=== PATIENT | male | born 1960 | race Caucasian/White ===

== ENCOUNTER 2018-09-13 23:19 | Inpatient (IN) | payer MEDICARE, OTHER ==
[~2018-09-13] VITALS: Ht 177.8 cm; Wt 84.1 kg
[2018-09-14] MEDS ORDERED: DIPHTH/TET/ACEL PERTUSS (ADULT) 0.5 ML VIAL IM* ONE (01:30)
[2018-09-14] MEDS ORDERED: SOD CHLORIDE 0.9% 1,000 ML IV STA (01:30)
--- NOTE | 2018-09-14 01:47 | ERD ---
ER Documentation Chief Complaint Chief Complaint bib ra from home for fall, face first, deformed nose, HPI This is a 58-year-old male who presents for evaluation of fall. Patient was brought in by EMS intoxicated with alcohol. The majority of the history was given by the patient's spouse. She states that the patient has a history of renal failure, his baseline creatinine is around 4, he is not currently on dialysis, she states that he has been drinking a little bit, and been confused, then he had a significant fall, and suffered a facial injury. Patient presented intoxicated, she also states that the patient has a prior history of a stroke. ROS All systems reviewed and are negative except as per history of present illness. Allergies Allergies: Coded Allergies: Unknown: Unable to obtain (Unverified , 09/14/18) PMhx/Soc Medical and Surgical Hx: pt denies Surgical Hx History of Surgery: No Hx Neurological Disorder: Yes (CVA) Hx Cardiac Disorders: Yes (htn, hyperlipidemia ) Hx Alcohol Use: Yes Smoking Status: Unknown if ever smoked Physical Exam Vitals Vital Signs Date Temp Pulse Resp B/P (MAP) Pulse Ox O2 O2 Flow FiO2 Time Delivery Rate 09/13/18 98.2 58 19 141/91 100 Room Air 23:26 (108) 09/13/18 98.2 53 19 126/65 100 23:21 (85) Physical Exam Const: Patient somnolent but arousable, Head: Atraumatic Eyes: Normal Conjunctiva ENT: Normal External Ears. There is ecchymosis and swelling of the nose noted, there is a 1 cm superficial laceration noted at the proximal nasal bridge. There is no septal hematoma, midface is stable Neck: Full range of motion. No C-spine tenderness no meningismus. Resp: Clear to auscultation bilaterally Cardio: Regular rate and rhythm, no murmurs Abd: Soft, non tender, non distended. Normal bowel sounds Skin: No petechiae or rashes Back: No midline or flank tenderness Ext: No cyanosis, or edema Neur: Awake and alert Psych: Normal Mood and Affect Result Diagram: 09/13/18 2343 09/13/18 2343 Results 24 hrs Laboratory Tests Test 09/13/18 00:30 09/13/18 23:43 09/14/18 01:20 09/14/18 01:56 Urine Opiates Negative Screen Urine Negative Barbiturates Urine Negative Amphetamines Screen Urine Negative Benzodiazepines Screen Urine Cocaine Negative Screen Urine Positive Cannabinoids White Blood Count 8.2 10^3/ul Red Blood Count 3.94 10^6/ul Hemoglobin 10.9 g/dl Hematocrit 33.6 % Mean Corpuscular 85.3 fl Volume Mean Corpuscular 27.7 pg Hemoglobin Mean Corpuscular 32.4 g/dl Hemoglobin Concen t Red Cell 14.5 % Distribution Width Platelet Count 234 10^3/UL Mean Platelet 9.6 fl Volume Immature 1.200 % Granulocytes % Neutrophils % 61.7 % Lymphocytes % 24.5 % Monocytes % 9.3 % Eosinophils % 2.8 % Basophils % 0.5 % Nucleated Red 0.0 /100WBC Blood Cells % Immature 0.100 10^3/ul Granulocytes # Neutrophils # 5.1 10^3/ul Lymphocytes # 2.0 10^3/ul Monocytes # 0.8 10^3/ul Eosinophils # 0.2 10^3/ul Basophils # 0.0 10^3/ul Nucleated Red 0.0 10^3/ul Blood Cells # Prothrombin Time 11.5 Sec Prothrombin Time 0.9 Ratio INR International 0.83 Normalized Ratio Activated 25.5 Sec Partial Thrombopl ast Time Sodium Level 143 mmol/L Potassium Level 4.8 mmol/L Chloride Level 111 mmol/L Carbon Dioxide 14 mmol/L Level Anion Gap 18 Blood Urea 58 mg/dl Nitrogen Creatinine 5.15 mg/dl Est Glomerular 12 mL/min Filtrat Rate mL/min Glucose Level 111 mg/dl Calcium Level 8.1 mg/dl Total Bilirubin 0.2 mg/dl Direct Bilirubin 0.00 mg/dl Indirect 0.2 mg/dl Bilirubin Aspartate Amino 22 IU/L Transf (AST/SGOT) Alanine 15 IU/L Aminotransferase (ALT/SGPT) Alkaline 79 IU/L Phosphatase Troponin I < 0.012 ng/ml Total Protein 7.3 g/dl Albumin 4.3 g/dl Globulin 3.00 g/dl Albumin/Globulin 1.43 Ratio Lipase 170 U/L Ethyl Alcohol 155.0 mg/dl Level Blood Gas Blood venous Specimen Source Arterial Blood 09/14/2018 2:00:34 Date Drawn AM Arterial Blood VENOUS LINE Gas Puncture Site Damian Test N/A Mixed Venous 7.275 Blood pH Mixed Venous 42.4 mmHG Blood PCO2 Mixed Venous 48.6 mmHG Blood PO2 Mixed Venous 19.3 mmol/L Blood HCO3 Mixed Venous -7.2 mmol/L Blood Base Excess Mixed Venous 80.3 mmHG Blood O2 Saturation Mixed Venous 12.2 g/dl Blood Total Hemoglobin Mixed Venous 80.0 % Blood Oxyhemoglob in Mixed Venous 0.3 % Bld Carboxyhemogl obin Mixed Venous 0.1 % Blood Methemoglob in Blood Gas 37.0 C Temperature Blood Gas ROOM AIR Modality FiO2 21.0 % Blood Gas AA Notified Whom Blood Gas 09/14/2018 2:06:12 Notified Time AM POC Venous 1.3 mmol/L Lactate Current Medications Medications Dose Sig/Martine Start Time Status Last (Trade) Ordered Route PRN Stop Time Admin Dose Reason Admin Diphtheria/ 0.5 ml ONCE ONCE 09/14/18 DC Tetanus/Acell IM* 01:30 09/14/18 Pertussis 01:31 (Adacel) Sodium 1,000 ml @ Q1H STAT 09/14/18 Chloride 1,000 mls/hr IV 01:30 09/14/18 02:29 Procedures/MDM This is a 58-year-old male who presents for evaluation of a fall. #Fall: Unclear if syncopal or mechanical, given patient's intoxication with EtOH. His cardiac work-up was unremarkable, with EKG showing no evidence of ischemia or arrhythmia. Troponin was also negative. He had clear evidence of facial trauma, with what clinically appeared to be a fractured nose. He had no septal hematomas, no evidence of airway compromise, superficial laceration was noted. Patient tetanus updated, Laceration Repair by me: Anesthesia: None Location: Nasal bridge Tendon/Joint/Nerves: No injury Foreign body: None detected after copious irrigation and exploration Technique: Skin adhesive Complexity: No subcutaneous sutures/mucosal repair/edge excision Post Closure Length: 1 cm cm Patient's bleeding was easily controlled in the department and there is no mag cation of anemia. No evidence of compartment syndrome, neurologic injury, vascular injury, open joint, tendon laceration, or foreign body. Patient is appropriate for outpatient follow up. 48 hour wound check. Scar minimization instructions given. #Renal failure. Patient's creatinine was noted to be significantly elevated, he also had an anion gap metabolic acidosis. He is not currently on dialysis, patient was given IV fluids, and he will need further work-up for this. EKG: Rate/Rhythm: Normal Sinus Rhythm QRS, ST, T-waves: No changes consistent w/ acute ischemia Impression: No evidence of ischemia or arrhythmia Accepting Care Team: Current data and ongoing care discussed. Primary: Oge Consulting: None Outstanding Data: none Departure Diagnosis: Primary Impression: Fall Encounter type: initial encounter Qualified Codes: W19.XXXA - Unspecified fall, initial encounter Additional Impression: Nasal fracture Encounter type: initial encounter Fracture type: closed Qualified Codes: S02.2XXA - Fracture of nasal bones, initial encounter for closed fracture Condition: Serious CORDEROALEX MD Sep 14, 2018 01:46
[2018-09-14] MEDS ORDERED: SOD CHLORIDE 0.9% 1,000 ML IV SCH (03:33)
[2018-09-14] MEDS ORDERED: CHLORDIAZEPOXIDE 25 MG CAP PO SCH (04:00)
[2018-09-14] MEDS ORDERED: NACL 0.9% 3 ML SYG IV SCH (04:00)
[2018-09-14] MEDS ORDERED: ONDANSETRON 4 MG INJ IV PRN (04:00)
[2018-09-14] MEDS ORDERED: LORAZEPAM 2 MG INJ IV PRN ×2 (04:00)
[2018-09-14] MEDS ORDERED: ACETAMINOPHEN 325 MG TAB PO PRN (04:00)
[2018-09-14] MEDS ORDERED: ALBUTEROL/IPRATROPIUM (NEB) 3 ML AMP HHN PRN (04:00)
--- NOTE | 2018-09-14 06:46 | HP ---
Date/Time of Note Date/Time of Note DATE: 09/14/18 TIME: 06:42 Assessment/Plan VTE Prophylaxis Pharmacological prophylaxis: heparin Assessment/Plan Assessment/Plan 1. Nasal bone fracture and facial injury -Status post ground-level fall while intoxicated -Either inpatient or outpatient ENT eval 2. Alcohol intoxication -IV fluids alternating with banana bag -Librium -As needed Ativan 3. Acute on CKD -Presented with a creatinine of 5.1. Reportedly at baseline creatinine around 4 -Renal ultrasound -Nephrology consult 4. Metabolic acidosis, secondary to #2 and #3 -IV fluid -Consider bicarb Result Diagram: 09/13/18 2343 09/13/18 2343 Results 24hrs Laboratory Tests Test 09/13/18 23:43 09/14/18 01:20 09/14/18 01:56 09/14/18 03:25 White Blood Count 8.2 Red Blood Count 3.94 L Hemoglobin 10.9 L Hematocrit 33.6 L Mean Corpuscular 85.3 Volume Mean Corpuscular 27.7 L Hemoglobin Mean Corpuscular 32.4 Hemoglobin Concent Red Cell 14.5 Distribution Width Platelet Count 234 Mean Platelet 9.6 Volume Immature 1.200 H Granulocytes % Neutrophils % 61.7 Lymphocytes % 24.5 Monocytes % 9.3 Eosinophils % 2.8 Basophils % 0.5 Nucleated Red 0.0 Blood Cells % Immature 0.100 H Granulocytes # Neutrophils # 5.1 Lymphocytes # 2.0 Monocytes # 0.8 Eosinophils # 0.2 Basophils # 0.0 Nucleated Red 0.0 Blood Cells # Prothrombin Time 11.5 L Prothrombin Time 0.9 Ratio INR International 0.83 Normalized Ratio Activated 25.[address] Time Sodium Level 143 Potassium Level 4.8 Chloride Level 111 H Carbon Dioxide 14 L Level Anion Gap 18 H Blood Urea 58 H Nitrogen Creatinine 5.15 H Est Glomerular 12 L Filtrat Rate mL/min Glucose Level 111 Calcium Level 8.1 L Total Bilirubin 0.2 Direct Bilirubin 0.00 Indirect Bilirubin 0.2 Aspartate Amino 22 Transf (AST/SGOT) Alanine 15 Aminotransferase ( ALT/SGPT) Alkaline 79 Phosphatase Troponin I < 0.012 Total Protein 7.3 Albumin 4.3 Globulin 3.00 Albumin/Globulin 1.43 Ratio Lipase 170 Ethyl Alcohol 155.0 H Level Blood Gas Specimen Blood venous Source Arterial Blood 09/14/2018 2:00:34 Date Drawn AM Arterial Blood Gas VENOUS LINE Puncture Site Damian Test N/A Mixed Venous Blood 7.275 L pH Mixed Venous Blood 42.4 PCO2 Mixed Venous Blood 48.6 H PO2 Mixed Venous Blood 19.3 L HCO3 Mixed Venous Blood -7.2 Base Excess Mixed Venous Blood 80.3 H O2 Saturation Mixed Venous Blood 12.2 Total Hemoglobin Mixed Venous 80.0 Blood Oxyhemoglobi n Mixed Venous 0.3 Bld Carboxyhemoglo bin Mixed Venous 0.1 Blood Methemoglobi n Blood Gas 37.0 Temperature Blood Gas Modality ROOM AIR FiO2 21.0 Blood Gas Notified AA Whom Blood Gas Notified 09/14/2018 2:06:12 Time AM POC Venous Lactate 1.3 Lactic Acid Level 1.3 Test 09/14/18 05:31 Lactic Acid Level 1.4 HPI/ROS Admit Date/Time Admit Date/Time Hx of Present Illness Patient is a 58-year-old male with a history of CKD who was brought to the ER after a facial injury status post GLF while intoxicated. Information is gathered from a chart review and from the ER physician mostly. CT of the face shows comminuted, displaced and angulated nasal bone fractures. Displaced fracture of the anterior nasal septum also noted. Head CT shows old infarct. Labs shows a creatinine of 5.1, bicarb 14. Reportedly his baseline creatinine is around 4. Patient is not on dialysis. PMH/Family/Social Past Medical History Past Surgical Hx: other Family History Significant Family History: no pertinent family hx Social History Alcohol Use: none Smoking Status: Never smoker Drug Use: none Exam Constitutional: other (No acute distress) Head: normocephalic, atraumatic Eyes: EOMI, PERRL Respiratory: clear to auscultation, normal air movement Cardiovascular: regular rate and rhythm Gastrointestinal: soft Extremities: normal pulses Medications Current Medications Sodium Chloride 1,000 ml @ 100 mls/hr Q10H IV ; Start 09/14/18 at 03:33 IV Flush (NS 3 ml) 3 ml PER PROTOCOL IV ; Start 09/14/18 at 04:00 Lorazepam (Ativan) 0.5 mg Q4H PRN IV .ANXIETY; Start 09/14/18 at 04:00 Ondansetron HCl (Zofran Inj) 4 mg Q6H PRN IV NAUSEA/VOMITING; Start 09/14/18 at 04:00 Acetaminophen (Tylenol Tab) 650 mg Q6H PRN PO .PAIN 1-3 OR TEMP; Start 09/14/18 at 04:00 Famotidine (Pepcid Iv) 20 mg DAILY IV ; Start 09/14/18 at 09:00 Albuterol/ Ipratropium (Duoneb) 3 ml Q2H RESP THERAPY PRN HHN SHORTNESS OF BREATH; Start 09/14/18 at 04:00 Multivitamins 10 ml/Thiamine HCl 100 mg/Folic Acid 1 mg/Sodium Chloride 1,011.2 ml @ 125 mls/ hr DAILY@ IVPB ; Start 09/14/18 at 09:00; Stop 09/17/18 at 09:00 Chlordiazepoxide (Librium) 75 mg Q8H PO ; Start 09/14/18 at 04:00 Lorazepam (Ativan) 2 mg Q1H PRN IV etoh w/d; Start 09/14/18 at 04:00 Sodium Bicarbonate (Na Bicarb 8.4% Syg) 100 ml ONCE ONCE IV ; Start 09/14/18 at 07:00; Stop 09/14/18 at 07:01; Status UNV Coded Allergies: No Known Allergy (Unverified , 09/14/18) Social History Smoking Status: Unknown if ever smoked Exam/Review of Systems Vital Signs Vitals Vital Signs Date Temp Pulse Resp B/P (MAP) Pulse Ox O2 O2 Flow FiO2 Time Delivery Rate 09/14/18 60 19 180/103 98 Room Air 05:51 (128) 09/13/18 98.2 23:26 JUSTINA SINHA MD Sep 14, 2018 06:46
[2018-09-14] MEDS ORDERED: NA BICARBONATE 8.4% 50 ML SYG IV ONE (07:00)
[2018-09-14] MEDS: MULTIVITAMINS 10 ML, THIAMINE 100 MG, FOLIC ACID 1 MG in SOD CHLORIDE 0.9% 1,000 ML IVPB SCH (08:48)
[2018-09-14] MEDS: FAMOTIDINE 20 MG INJ IV SCH (08:49)
[2018-09-14] MEDS: SODIUM BICARBONATE (IV ADD) 75 MEQ in SOD CHLORIDE 0.45% 1,000 ML IV SCH (11:56)
[2018-09-14] MEDS ORDERED: AMLO-147 PO (11:57)
[2018-09-14] MEDS ORDERED: PENT400T9 PO (11:57)
[2018-09-14] MEDS ORDERED: HYDR-3671 PO (11:57)
[2018-09-14] MEDS ORDERED: RSV10T PO (11:57)
[2018-09-14] MEDS ORDERED: LOSA50TA14 PO (11:57)
[2018-09-14] MEDS ORDERED: DULO30CA47 PO (12:02)
[2018-09-14] MEDS ORDERED: CLON0.2T5 PO (12:02)
[2018-09-14] MEDS ORDERED: METO-336 PO (12:02)
--- NOTE | 2018-09-14 12:05 | CONS ---
DATE OF ADMISSION: 09/13/2018 DATE OF CONSULTATION: 09/14/2018 REASON FOR CONSULTATION: Chronic kidney disease, possible acute kidney injury. PHYSICIAN REQUESTING CONSULT: Dr. Jade. HISTORY OF PRESENT ILLNESS: This is a 50-year-old male with a past medical history of CKD stage IV/V with a baseline creatinine of 4 mg/dL, a history of hypertension, history of anxiety disorder, histo ry of ETOH use who presents to [facility] after having a ground level fall while be ing intoxicated. The patient states he was consuming excess amount of alcohol, had a fall. The oanh ent arrived in the emergency room, had a CT scan which are comminuted displaced fracture of the nasal bone. The patient had a scan also showed evidence of old infarct. Upon arrival to the emergency ro om, patient's laboratory data also showed creatinine 5.1, bicarbonate 14. The patient was given IV f luids and benzodiazepines. 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 Th e patient states that he has CKD stage 4/5 and is on the borderline on dialysis with previous baselin e creatinine of 4 mg/dL. The patient currently denies any uremic symptoms of nausea, vomiting or hem optysis. The patient states he does not wish to initiate dialysis at this time. 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 PAST SURGICAL HISTORY: Reviewed. ALLERGIES: NO KNOWN DRUG ALLERGIES. FAMILY HISTORY: No family history of kidney disease. SOCIAL HISTORY: Positive alcohol use. MEDICATIONS: The patient's medications have been reviewed. REVIEW OF SYSTEMS: A 14-point review of systems conducted in the hospital stated in HPI, otherwise n egative. PHYSICAL EXAMINATION: VITAL SIGNS: Blood pressure is 163/114, respiration 18, pulse 76, temperature 98.2. HEENT: Head is normocephalic. CHEST: The patient has noted bandage over his nose with ecchymoses and tenderness to palpation. NECK: Supple. HEART: Regular rate. LUNGS: Show diminished breath sounds at the base. ABDOMEN: Soft, nontender to palpation without rebound or guarding. EXTREMITIES: Negative for clubbing, cyanosis, no edema. DERMATOLOGIC: No rashes. MUSCULOSKELETAL: No joint effusion. NEUROLOGIC: No focal deficits. MEDICATIONS: The patient's medications have been reviewed. LABORATORY DATA: Has been reviewed and he has been reviewed. ASSESSMENT AND PLAN: This is a 50-year-old male with: 1. Nonoliguric acute kidney injury on top of chronic kidney disease stage 4/5 with unknown baseline creatinine 14 mg/dL. Etiology of acute kidney injury may be secondary to hemodynamics due to volume depletion. Other possibilities is progression of chronic kidney disease or acute and/or tubular inju ry are consideration. At this point, is to check a UA with microanalysis, check urine electrolytes. The patient's renal function was reviewed. No evidence of obstruction. We will continue patient on gentle IV hydration, monitor closely. Please note the patient does not have any uremic signs and sy mptoms. No immediate need for renal placement therapy. 2. Metabolic acidosis secondary to chronic kidney disease. Will start the patient on bicarbonate dr ybarra and monitor. 3. Anemia. Continue to monitor. 4. Mineral bone disorder, monitor calcium and phosphorus levels. 5. Nasal fracture. Continue to monitor. The patient will be seen by ENT in outpatient setting. 6. Toxic agents. Continue IV fluids, Librium as needed. Continue present medication. Thank you, Dr. Jade, for this interesting consult. It will be a pleasure to follow patient with you throughout the hospital course. Dictated By: TESSA JACKSON/JOSE DE JESUS Conf#: [id number] DID#: [id number]
[2018-09-14 13:20] VITALS: BP 166/99; RESP 18
[2018-09-14 13:28] VITALS: Ht 177.8 cm; Wt 84.1 kg
[2018-09-14 13:43] VITALS: BP 164/99; PULSE 72; RESP 20
--- NOTE | 2018-09-14 14:24 | PN ---
Date/Time of Note Date/Time of Note DATE: 09/14/18 TIME: 14:21 Assessment/Plan VTE Prophylaxis SCD contraindicated: low risk/ambulating Pharmacological prophylaxis: NA/contraindicated Pharm contraindication: low risk/ambulating Assessment/Plan Hospital Course Assessment and plan 1. Nasal fracture stable continue supportive care. Outpatient ENT 2. Mechanical fall intoxicated DC home tomorrow 3. History of stroke 5 years ago. Treated in [facility]. 4. No past tobacco 5. Alcohol intoxication 6. CKD, acute renal failure? 7. Essential hypertension 8. Generalized anxiety disorder? 9. Anemia 10. History of prostate cancer surgery radiation Subjective awake alert follows commands. Oriented. Events prior to the fall. States he was intoxicated. Objective: Vital signs stable sinus Physical exam No pallor droop, nasal ecchymosis no carotid bruits Regular no murmur gallop Clear Benign No edema neuro: Grossly nonfocal Result Diagram: 09/13/18 2343 09/13/18 2343 Results 24hrs Laboratory Tests Test 09/13/18 23:43 09/14/18 00:30 09/14/18 01:20 09/14/18 01:56 White Blood Count 8.2 Red Blood Count 3.94 L Hemoglobin 10.9 L Hematocrit 33.6 L Mean Corpuscular 85.3 Volume Mean Corpuscular 27.7 L Hemoglobin Mean Corpuscular 32.4 Hemoglobin Concent Red Cell 14.5 Distribution Width Platelet Count 234 Mean Platelet 9.6 Volume Immature 1.200 H Granulocytes % Neutrophils % 61.7 Lymphocytes % 24.5 Monocytes % 9.3 Eosinophils % 2.8 Basophils % 0.5 Nucleated Red 0.0 Blood Cells % Immature 0.100 H Granulocytes # Neutrophils # 5.1 Lymphocytes # 2.0 Monocytes # 0.8 Eosinophils # 0.2 Basophils # 0.0 Nucleated Red 0.0 Blood Cells # Prothrombin Time 11.5 L Prothrombin Time 0.9 Ratio INR International 0.83 Normalized Ratio Activated 25.[address] Time Sodium Level 143 Potassium Level 4.8 Chloride Level 111 H Carbon Dioxide 14 L Level Anion Gap 18 H Blood Urea 58 H Nitrogen Creatinine 5.15 H Est Glomerular 12 L Filtrat Rate mL/min Glucose Level 111 Calcium Level 8.1 L Total Bilirubin 0.2 Direct Bilirubin 0.00 Indirect Bilirubin 0.2 Aspartate Amino 22 Transf (AST/SGOT) Alanine 15 Aminotransferase ( ALT/SGPT) Alkaline 79 Phosphatase Troponin I < 0.012 Total Protein 7.3 Albumin 4.3 Globulin 3.00 Albumin/Globulin 1.43 Ratio Lipase 170 Ethyl Alcohol 155.0 H Level Urine Random 56 Sodium Urine Random 29.1 Potassium Blood Gas Specimen Blood venous Source Arterial Blood 09/14/2018 2:00:34 Date Drawn AM Arterial Blood Gas VENOUS LINE Puncture Site Damian Test N/A Mixed Venous Blood 7.275 L pH Mixed Venous Blood 42.4 PCO2 Mixed Venous Blood 48.6 H PO2 Mixed Venous Blood 19.3 L HCO3 Mixed Venous Blood -7.2 Base Excess Mixed Venous Blood 80.3 H O2 Saturation Mixed Venous Blood 12.2 Total Hemoglobin Mixed Venous 80.0 Blood Oxyhemoglobi n Mixed Venous 0.3 Bld Carboxyhemoglo bin Mixed Venous 0.1 Blood Methemoglobi n Blood Gas 37.0 Temperature Blood Gas Modality ROOM AIR FiO2 21.0 Blood Gas Notified AA Whom Blood Gas Notified 09/14/2018 2:06:12 Time AM POC Venous Lactate 1.3 Test 09/14/18 03:25 09/14/18 05:31 Lactic Acid Level 1.3 1.4 Exam/Review of Systems Exam Vitals Vital Signs Date Temp Pulse Resp B/P (MAP) Pulse Ox O2 O2 Flow FiO2 Time Delivery Rate 09/14/18 98.4 72 20 164/99 94 Room Air 13:43 (120) Results Results 24hrs Laboratory Tests Test 09/13/18 23:43 09/14/18 00:30 09/14/18 01:20 09/14/18 01:56 White Blood Count 8.2 Red Blood Count 3.94 L Hemoglobin 10.9 L Hematocrit 33.6 L Mean Corpuscular 85.3 Volume Mean Corpuscular 27.7 L Hemoglobin Mean Corpuscular 32.4 Hemoglobin Concent Red Cell 14.5 Distribution Width Platelet Count 234 Mean Platelet 9.6 Volume Immature 1.200 H Granulocytes % Neutrophils % 61.7 Lymphocytes % 24.5 Monocytes % 9.3 Eosinophils % 2.8 Basophils % 0.5 Nucleated Red 0.0 Blood Cells % Immature 0.100 H Granulocytes # Neutrophils # 5.1 Lymphocytes # 2.0 Monocytes # 0.8 Eosinophils # 0.2 Basophils # 0.0 Nucleated Red 0.0 Blood Cells # Prothrombin Time 11.5 L Prothrombin Time 0.9 Ratio INR International 0.83 Normalized Ratio Activated 25.[address] Time Sodium Level 143 Potassium Level 4.8 Chloride Level 111 H Carbon Dioxide 14 L Level Anion Gap 18 H Blood Urea 58 H Nitrogen Creatinine 5.15 H Est Glomerular 12 L Filtrat Rate mL/min Glucose Level 111 Calcium Level 8.1 L Total Bilirubin 0.2 Direct Bilirubin 0.00 Indirect Bilirubin 0.2 Aspartate Amino 22 Transf (AST/SGOT) Alanine 15 Aminotransferase ( ALT/SGPT) Alkaline 79 Phosphatase Troponin I < 0.012 Total Protein 7.3 Albumin 4.3 Globulin 3.00 Albumin/Globulin 1.43 Ratio Lipase 170 Ethyl Alcohol 155.0 H Level Urine Random 56 Sodium Urine Random 29.1 Potassium Blood Gas Specimen Blood venous Source Arterial Blood 09/14/2018 2:00:34 Date Drawn AM Arterial Blood Gas VENOUS LINE Puncture Site Damian Test N/A Mixed Venous Blood 7.275 L pH Mixed Venous Blood 42.4 PCO2 Mixed Venous Blood 48.6 H PO2 Mixed Venous Blood 19.3 L HCO3 Mixed Venous Blood -7.2 Base Excess Mixed Venous Blood 80.3 H O2 Saturation Mixed Venous Blood 12.2 Total Hemoglobin Mixed Venous 80.0 Blood Oxyhemoglobi n Mixed Venous 0.3 Bld Carboxyhemoglo bin Mixed Venous 0.1 Blood Methemoglobi n Blood Gas 37.0 Temperature Blood Gas Modality ROOM AIR FiO2 21.0 Blood Gas Notified AA Whom Blood Gas Notified 09/14/2018 2:06:12 Time AM POC Venous Lactate 1.3 Test 09/14/18 03:25 09/14/18 05:31 Lactic Acid Level 1.3 1.4 Medications Medication Current Medications IV Flush (NS 3 ml) 3 ml PER PROTOCOL IV ; Start 09/14/18 at 04:00 Lorazepam (Ativan) 0.5 mg Q4H PRN IV .ANXIETY; Start 09/14/18 at 04:00 Ondansetron HCl (Zofran Inj) 4 mg Q6H PRN IV NAUSEA/VOMITING; Start 09/14/18 at 04:00 Acetaminophen (Tylenol Tab) 650 mg Q6H PRN PO .PAIN 1-3 OR TEMP; Start 09/14/18 at 04:00 Famotidine (Pepcid Iv) 20 mg DAILY IV Last administered on 09/14/18at 08:49; Admin Dose 20 MG; Start 09/14/18 at 09:00 Albuterol/ Ipratropium (Duoneb) 3 ml Q2H RESP THERAPY PRN HHN SHORTNESS OF BREATH; Start 09/14/18 at 04:00 Multivitamins 10 ml/Thiamine HCl 100 mg/Folic Acid 1 mg/Sodium Chloride 1,011.2 ml @ 125 mls/ hr DAILY@09 IVPB Last administered on 09/14/18at 08:48; Admin Dose 125 MLS/HR; Start 09/14/18 at 09:00; Stop 09/17/18 at 09:00 Chlordiazepoxide (Librium) 75 mg Q8H PO Last administered on 09/14/18at 07:03; Admin Dose 75 MG; Start 09/14/18 at 04:00 Lorazepam (Ativan) 2 mg Q1H PRN IV etoh w/d; Start 09/14/18 at 04:00 Sodium Bicarbonate 75 meq/Sodium Chloride 1,075 ml @ 75 mls/hr [id number] IV Last administered on 09/14/18at 11:56; Admin Dose 75 MLS/HR; Start 09/14/18 at 11:00 JENNY DOMINGUEZ MD Sep 14, 2018 14:24
[2018-09-14] MEDS ORDERED: morphine 2 MG INJ IV PRN (14:30)
[2018-09-14] MEDS ORDERED: HYDROCODONE/APAP (10/325) TAB PO PRN (14:30)
[2018-09-14 15:02] VITALS: BP 175/98; PULSE 74; RESP 20
[2018-09-14] MEDS: AMLODIPINE 10 MG TAB PO SCH (16:37)
[2018-09-14] MEDS: METOPROLOL (XL) 100 MG TAB PO SCH (16:37)
[2018-09-14 20:00] VITALS: BP 170/100; PULSE 61; PULSE 80; RESP 20
[2018-09-14] MEDS: ATORVASTATIN 40 MG TAB PO SCH (20:13)
[2018-09-15] VITALS: BP 145/86; PULSE 60; RESP 20
[2018-09-15] MEDS: SODIUM BICARBONATE (IV ADD) 75 MEQ in SOD CHLORIDE 0.45% 1,000 ML IV SCH (01:51)
[2018-09-15 04:00] VITALS: BP 176/101; PULSE 53; RESP 22
[2018-09-15 07:37] VITALS: BP 175/98; PULSE 61; RESP 18
[2018-09-15] MEDS: AMLODIPINE 10 MG TAB PO SCH (08:22)
[2018-09-15] MEDS: PENTOXIFYLLINE (SR) 400 MG TAB PO SCH (08:22)
[2018-09-15] MEDS: FAMOTIDINE 20 MG INJ IV SCH (08:22)
[2018-09-15] MEDS: METOPROLOL (XL) 100 MG TAB PO SCH (08:22)
[2018-09-15] MEDS: DULOXETINE 30 MG CAP DR PO SCH (08:22)
[2018-09-15] MEDS: MULTIVITAMINS 10 ML, THIAMINE 100 MG, FOLIC ACID 1 MG in SOD CHLORIDE 0.9% 1,000 ML IVPB SCH (08:51)
--- NOTE | 2018-09-15 09:01 | PN ---
DATE: 09/15/2018 SUBJECTIVE: The patient is stable. No events overnight. OBJECTIVE: VITAL SIGNS: Blood pressure is 175/98, pulse 61, respiration 18, temperature 98.2. HEENT: Head is normocephalic. NECK: Supple. HEART: Has a regular rate. LUNGS: Show diminished breath sounds at the base. ABDOMEN: Soft, nontender to palpation without rebound or guarding. EXTREMITIES: Negative for clubbing, cyanosis, no edema. DERMATOLOGIC: No rashes. MUSCULOSKELETAL: No joint effusion. NEUROLOGIC: No change in exam. MEDICATIONS: Reviewed. LABORATORY DATA: Reviewed. IMAGING STUDIES: Have been reviewed. ASSESSMENT AND PLAN: 1. Nonoliguric acute kidney injury on top of chronic kidney disease stage IV/V with a baseline creat inine of 4.0 mg/dL. Etiology of acute kidney injury is secondary to hemodynamics, volume depletion. The patient's renal function has mildly improved after IV hydration. At this point, will discontinu e IV fluids as renal function is approaching baseline. The patient is clinically stable, shows no ov ert uremic signs or symptoms. The patient will follow up with his primary intensive care unit nurse in outpatient setting for further monitoring and evaluation. At this point, will continue current treatment plan, supportive care, renally dose all meds. No immediate need for renal replacement therapy. 2. Metabolic acidosis secondary to acute kidney injury, improved. We will discontinue bicarbonate d rip. 3. Anemia. Monitor hemoglobin and hematocrit levels. 4. Mineral bone disorder. Monitor calcium and phosphorus levels. 5. Nasal fracture. Continue to monitor. Outpatient ENT evaluation. 6. ETOH use. Continue to monitor. No signs of withdrawal. Will give Librium as needed. 7. Hypernatremia. Will encourage free water intake. Dictated By: TESSA SAEED DO NR/NTS Conf#: [id number] DID#: [id number] CC: JUSTINA SINHA MD;*EndCC*
--- NOTE | 2018-09-15 11:03 | RADRPT ---
Vent Rate: 68 bpm RR Interval: 888 msec TX Interval: 188 msec QRS Duration: 129 msec QT Interval: 429 msec QTC Interval: 455 msec P-R-T [place]: 26 - 23 - 116 degrees Sinus rhythm...normal P axis, V-rate 50- 99 Nonspecific intraventricular conduction delay...QRSd >115mS, not LBBB/RBBB Abnormal T, consider ischemia, lateral leads...T <-0.20mV, I aVL V5 V6 Electronically Signed By: Denny Swanson
[2018-09-15 11:17] VITALS: BP 148/97; PULSE 68; RESP 18
[2018-09-15 15:33] VITALS: BP 126/84; PULSE 54; RESP 19
[2018-09-15 19:42] VITALS: BP 143/95; PULSE 64; RESP 18
--- NOTE | 2018-09-15 20:42 | PN ---
Date/Time of Note Date/Time of Note DATE: 09/15/18 TIME: 20:40 Assessment/Plan VTE Prophylaxis Risk score (from Ns)>0 risk: 1 SCD applied (from Ns): Yes SCD contraindicated: low risk/ambulating Pharmacological prophylaxis: NA/contraindicated Pharm contraindication: low risk/ambulating Lines/Catheters [facility] Peripheral IV Urinary Cath still in place: No Assessment/Plan Hospital Course Assessment and plan 1. Nasal fracture stable cont supportive care. Outpatient ENT 2. Mechanical fall intoxicated DC home tomorrow? 3. History of stroke 5 years ago. Treated in [facility]. 4. No past tobacco 5. Alcohol intoxication 6. CKD, acute renal failure; stable, Home when improved 7. Essential hypertension 8. Generalized anxiety disorder? 9. Anemia 10. History of prostate cancer surgery radiation S 09/14 awake alert follows commands. Oriented. Events prior to the fall. States he was intoxicated. 09/15: No events. O: Vss PE No pallor droop, nasal ecchymosis no carotid bruits Regular no mrg Clear Benign No edema neuro: Grossly nonfocal Result Diagram: 09/15/18 0632 09/15/18 0632 Results 24hrs Laboratory Tests Test 09/15/18 06:32 White Blood Count 8.8 Red Blood Count 4.21 L Hemoglobin 11.7 L Hematocrit 35.9 L Mean Corpuscular Volume 85.3 Mean Corpuscular Hemoglobin 27.8 L Mean Corpuscular Hemoglobin Concent 32.6 Red Cell Distribution Width 14.6 H Platelet Count 219 Mean Platelet Volume 9.4 Immature Granulocytes % 1.000 H Neutrophils % 70.4 Lymphocytes % 17.7 Monocytes % 8.6 Eosinophils % 1.8 Basophils % 0.5 Nucleated Red Blood Cells % 0.0 Immature Granulocytes # 0.090 H Neutrophils # 6.2 Lymphocytes # 1.6 Monocytes # 0.8 Eosinophils # 0.2 Basophils # 0.0 Nucleated Red Blood Cells # 0.0 Sodium Level 146 H Potassium Level 4.8 Chloride Level 112 H Carbon Dioxide Level 25 # Anion Gap 9 # Blood Urea Nitrogen 52 H Creatinine 4.30 H Est Glomerular Filtrat Rate mL/min 14 L Glucose Level 107 Hemoglobin A1c 5.0 Calcium Level 8.5 Phosphorus Level 4.6 Magnesium Level 2.5 Total Bilirubin 0.3 Direct Bilirubin 0.00 Indirect Bilirubin 0.3 Aspartate Amino Transf (AST/SGOT) 15 Alanine Aminotransferase (ALT/SGPT) 22 Alkaline Phosphatase 79 Total Protein 7.2 Albumin 4.1 Globulin 3.10 Albumin/Globulin Ratio 1.32 Thyroid Stimulating Hormone (TSH) 1.910 Exam/Review of Systems Exam Vitals Vital Signs Date Temp Pulse Resp B/P (MAP) Pulse Ox O2 O2 Flow FiO2 Time Delivery Rate 09/15/18 97.5 64 18 143/95 98 19:42 (111) 09/14/18 Room Air 15:02 Intake and Output 09/14/18 09/14/18 09/15/18 1515:00 23:00 07:00 IntakeIntake Total 480 ml 915 ml 1300 ml OutputOutput Total 250 ml 800 ml 1000 ml BalanceBalance 230 ml 115 ml 300 ml Results Results 24hrs Laboratory Tests Test 09/15/18 06:32 White Blood Count 8.8 Red Blood Count 4.21 L Hemoglobin 11.7 L Hematocrit 35.9 L Mean Corpuscular Volume 85.3 Mean Corpuscular Hemoglobin 27.8 L Mean Corpuscular Hemoglobin Concent 32.6 Red Cell Distribution Width 14.6 H Platelet Count 219 Mean Platelet Volume 9.4 Immature Granulocytes % 1.000 H Neutrophils % 70.4 Lymphocytes % 17.7 Monocytes % 8.6 Eosinophils % 1.8 Basophils % 0.5 Nucleated Red Blood Cells % 0.0 Immature Granulocytes # 0.090 H Neutrophils # 6.2 Lymphocytes # 1.6 Monocytes # 0.8 Eosinophils # 0.2 Basophils # 0.0 Nucleated Red Blood Cells # 0.0 Sodium Level 146 H Potassium Level 4.8 Chloride Level 112 H Carbon Dioxide Level 25 # Anion Gap 9 # Blood Urea Nitrogen 52 H Creatinine 4.30 H Est Glomerular Filtrat Rate mL/min 14 L Glucose Level 107 Hemoglobin A1c 5.0 Calcium Level 8.5 Phosphorus Level 4.6 Magnesium Level 2.5 Total Bilirubin 0.3 Direct Bilirubin 0.00 Indirect Bilirubin 0.3 Aspartate Amino Transf (AST/SGOT) 15 Alanine Aminotransferase (ALT/SGPT) 22 Alkaline Phosphatase 79 Total Protein 7.2 Albumin 4.1 Globulin 3.10 Albumin/Globulin Ratio 1.32 Thyroid Stimulating Hormone (TSH) 1.910 Medications Medication Current Medications IV Flush (NS 3 ml) 3 ml PER PROTOCOL IV ; Start 09/14/18 at 04:00 Lorazepam (Ativan) 0.5 mg Q4H PRN IV .ANXIETY; Start 09/14/18 at 04:00 Ondansetron HCl (Zofran Inj) 4 mg Q6H PRN IV NAUSEA/VOMITING; Start 09/14/18 at 04:00 Acetaminophen (Tylenol Tab) 650 mg Q6H PRN PO .PAIN 1-3 OR TEMP; Start 09/14/18 at 04:00 Famotidine (Pepcid Iv) 20 mg DAILY IV Last administered on 09/15/18at 08:22; Admin Dose 20 MG; Start 09/14/18 at 09:00 Albuterol/ Ipratropium (Duoneb) 3 ml Q2H RESP THERAPY PRN HHN SHORTNESS OF BREATH; Start 09/14/18 at 04:00 Multivitamins 10 ml/Thiamine HCl 100 mg/Folic Acid 1 mg/Sodium Chloride 1,011.2 ml @ 125 mls/ hr DAILY@09 IVPB Last administered on 09/15/18at 08:51; Admin Dose 125 MLS/HR; Start 09/14/18 at 09:00; Stop 09/17/18 at 09:00 Lorazepam (Ativan) 2 mg Q1H PRN IV etoh w/d; Start 09/14/18 at 04:00 Chlordiazepoxide (Librium) 75 mg Q8H PO ; Start 09/16/18 at 04:00 Acetaminophen/ Hydrocodone Bitart ([place] (10/325)) 1 tab Q4H PRN PO MODERATE PAIN LEVEL 4-6; Start 09/14/18 at 14:30 Morphine Sulfate (morphine) 2 mg Q4H PRN IV SEVERE PAIN LEVEL 7-10; Start 09/14/18 at 14:30 Amlodipine Besylate (Norvasc) 10 mg DAILY PO Last administered on 09/15/18at 08:22; Admin Dose 10 MG; Start 09/14/18 at 16:00 Clonidine (Catapres) 0.2 mg TID PO Last administered on 09/15/18at 12:48; Admin Dose 0.2 MG; Start 09/14/18 at 21:00 Duloxetine HCl (Cymbalta) 30 mg DAILY PO Last administered on 09/15/18at 08:22; Admin Dose 30 MG; Start 09/15/18 at 09:00 Hydralazine HCl (Apresoline) 25 mg Q8 PO Last administered on 09/15/18 13:40; Admin Dose 25 MG; Start 09/14/18 at 16:00 Metoprolol Succinate (Toprol Xl) 100 mg DAILY PO Last administered on 09/15/18 08:22; Admin Dose 100 MG; Start 09/14/18 at 16:00 Pentoxifylline (Trental) 400 mg DAILY PO Last administered on 09/15/18 08:22; Admin Dose 400 MG; Start 09/15/18 at 09:00 Atorvastatin Calcium (Lipitor) 40 mg DAILY@21 PO Last administered on 09/14/18 20:13; Admin Dose 40 MG; Start 09/14/18 at 21:00 Clonidine (Catapres) 0.1 mg Q4H PRN PO ELEVATED BLOOD PRESSURE Last administered on 09/15/18 06:15; Admin Dose 0.1 MG; Start 09/14/18 at 16:00 JENNY DOMINGUEZ MD Sep 15, 2018 20:42
[2018-09-15] MEDS: ATORVASTATIN 40 MG TAB PO SCH (20:58)
[2018-09-15] MEDS ORDERED: FAMOTIDINE 20 MG TAB PO SCH (21:00)
[2018-09-16 02:00] VITALS: BP 149/94; PULSE 58; RESP 18
[2018-09-16] MEDS: CHLORDIAZEPOXIDE 25 MG CAP PO SCH ×2 (04:00→12:00)
[2018-09-16 07:38] VITALS: BP 161/84; PULSE 60; RESP 20
--- NOTE | 2018-09-16 08:10 | PN ---
DATE: 09/16/2018 SUBJECTIVE: The patient is stable, no events overnight. No fevers, chills. OBJECTIVE: VITAL SIGNS: Blood pressure is 149/94, respirations 18, pulse 58, temperature 97.9. HEENT: Head is normocephalic. NECK: Supple. HEART: Regular rate. LUNGS: Show diminished breath sounds at the base. ABDOMEN: Soft, nontender to palpation without rebound or guarding. EXTREMITIES: Negative for clubbing, cyanosis, no edema. DERMATOLOGIC: No rashes. MUSCULOSKELETAL: No joint effusion. NEUROLOGIC: No change in exam. MEDICATIONS: Reviewed. LABORATORY DATA: Has been reviewed. IMAGING STUDIES: Reviewed. ASSESSMENT AND PLAN: 1. Nonoliguric acute kidney injury on top of chronic kidney disease stage IV/V with previous baselin e creatinine around 400 mg/dL. Etiology of acute kidney injury is secondary to hemodynamics. The lux vicente's renal function has improved returning back to baseline after a course of IV hydration. At th is point, will continue current treatment plans, supportive care, renally dose all meds. Please note the patient's renal function is at baseline. 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 2. Metabolic acidosis secondary to acute kidney injury, improved status post bicarbonate drip. The patient will continue outpatient bicarbonate. 3. Anemia. Monitor hemoglobin and hematocrit levels. 4. Mineral bone disorder. Monitor calcium and phosphorus levels. 5. Nasal fracture. Continue to monitor. Follow up with ENT in the outpatient setting. 6. ETOH abuse, no signs of withdrawal. Continue to monitor. 7. Hypernatremia, resolved. Dictated By: TESSA JACKSON/NTS Conf#: [id number] DID#: [id number] CC: JUSTINA SINHA MD;*EndCC*
[2018-09-16] MEDS: PENTOXIFYLLINE (SR) 400 MG TAB PO SCH (08:25)
[2018-09-16] MEDS: DULOXETINE 30 MG CAP DR PO SCH (08:26)
[2018-09-16] MEDS: AMLODIPINE 10 MG TAB PO SCH (08:26)
[2018-09-16] MEDS: METOPROLOL (XL) 100 MG TAB PO SCH (08:27)
[2018-09-16] MEDS ORDERED: THIAMINE 100 MG TAB PO SCH (09:00)
[2018-09-16 14:53] VITALS: BP 158/91; PULSE 59; RESP 18
--- NOTE | 2018-09-16 15:49 | PDOCDIS ---
Discharge Instructions CONDITION [id number] Patient Condition: Ievsl0r Stable HOME CARE INSTRUCTIONS: [id number] Diet Instructions: [id number] Activity Restrictions: [id number] No Restrictions Slowly Increase Activity Do not Drive [id number] Bathing Restrictions: [id number] Shower FOLLOW UP/APPOINTMENTS Follow-up Plan appt primary and ENT 1 week JENNY DOMINGUEZ MD Sep 16, 2018 15:49
[2018-09-16] MEDS ORDERED: NIFE60TA18 PO (15:52)
[2018-09-16] MEDS ORDERED: ACET325T33 PO (15:52)
[2018-09-16] MEDS ORDERED: HYDR-3609 PO (15:52)
[2018-09-16] MEDS ORDERED: HYDR-3671 PO (15:52)
[2018-09-16] MEDS ORDERED: ASPI-817 PO (15:56)
--- NOTE | 2018-09-16 16:27 | DS ---
Date/Time of Note Date/Time of Note DATE: 09/16/18 TIME: 16:21 Discharge Summary Admission/Discharge Info Admit Date/Time Sep 14, 2018 at 01:56 Discharge Date/Time Patient Condition: Stable Consults Maged Procedures Chest x-ray No acute process Renal ultrasound No acute process; medical renal disease some bilateral benign cysts CAT scan of the brain IMPRESSION: 1. No acute intracranial hemorrhage nor mass effect. No depressed calvarial fracture. 2. 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 MRI brain has improved sensitivity for acute infarct or subtle lesion. 3. Acute, comminuted, displaced fracture of the nasal bones, nasal maxillary processes and the anterior superior bony nasal septum. 4. Partially visualized poor maxillary dentition with periapical lucencies associated with the left molars. C-spine CT scan DJD mostly at C5-C6 Facial CT no contrast IMPRESSION: Comminuted, displaced and angulated nasal bone fractures. Displaced fracture of the anterior nasal septum also noted. Bilateral maxillary sinus disease. Hx of Present Illness 58-year-old gentleman who was intoxicated and admitted with fall nasal fracture. Creatinine about 4. Hospital Course Hospitalist coverage/hospital course -Admitted and evaluated for nasal fracture. Due to intoxication. No focal deficits. Sinus rhythm on EKG. CAT scan of the brain no stroke. I confirmed this with the patient. He is awake alert follows commands. Gait is adequate and stable for for discharge. He is instructed not to drive. In terms of his nasal fracture he was given information to visit Dr. Lloyd of ENT next week. In terms of his renal failure. Baseline Creatine around 3.0, and on admit=5.1. Creatinine today is 3.9. Dc home off arb. Started on nifedipine and increased his hydralazine. Assessment and plan 1. Nasal fracture stable discharge. Outpatient ENT 2. Mechanical fall intoxicated- etoh; marijuana. DC home 3. History of stroke 5 years ago. Treated in [facility]. Aspirin. 4. No past tobacco 5. Alcohol intoxication 6. CKD, acute renal failure; stable, by nephrology. Stable and fit for discharge. 7. Essential hypertension 8. Generalized anxiety disorder? 9. Anemia 10. History of prostate cancer surgery radiation S 09/14 awake alert follows commands. Oriented. Events prior to the fall. States he was intoxicated. 7/6: No events. 09/16 awake alert follows commands ambulating no distress. And in addition no pain. O: Vss PE No pallor droop, nasal ecchymosis no carotid bruits Regular no mrg Clear Benign No edema neuro: Grossly nonfocal Home Meds Active Scripts Aspirin* (Aspirin* EC) 81 Mg Tablet.dr, 81 MG PO DAILY for 30 Days, #30 TAB otc Prov:JENNY DOMINGUEZ MD 09/16/18 Nifedipine* (Nifedipine ER*) 60 Mg Tablet.sa, 60 MG PO DAILY for 10 Days, #10 TAB.SA Prov:JENNY DOMINGUEZ MD 09/16/18 Hydralazine Hcl* (Hydralazine Hcl*) 25 Mg Tab, 50 MG PO Q8 for 10 Days, #30 TAB Prov:JENYN DOMINGUEZ MD 09/16/18 Hydrocodone/Acetaminophen (Hydrocodone-Acetamin 10-325 mg) 1 Each Tablet, 1 TAB PO Q4H PRN for MODERATE PAIN LEVEL 4-6 for 1 Day, TAB Prov:JENNY DOMINGUEZ MD 09/16/18 Acetaminophen* (Tylenol*) 325 Mg Tablet, 650 MG PO Q6H PRN for .PAIN 1-3 OR TEMP for 1 Day, #1 TAB Prov:JENNY DOMINGUEZ MD 09/16/18 Reported Medications Duloxetine Hcl* (Duloxetine Hcl*) 30 Mg Capsule.dr, 30 MG PO DAILY, #30 CAP 09/14/18 Metoprolol Succinate* (Toprol XL*) 100 Mg Tab.sr.24h, 100 MG PO DAILY, #30 TAB 09/14/18 Clonidine Hcl* (Clonidine Hcl*) 0.2 Mg Tablet, 0.2 MG PO TID, TAB 09/14/18 Pentoxifylline* (Pentoxifylline*) 400 Mg Tablet.sa, 400 MG PO DAILY, TAB 09/14/18 Rosuvastatin Calcium* (Crestor*) 10 Mg Tablet, 10 MG PO QHS, #30 TAB 09/14/18 Discontinued Reported Medications Losartan Potassium* (Losartan Potassium*) 50 Mg Tablet, 50 MG PO DAILY, TAB 09/14/18 Hydralazine Hcl* (Hydralazine Hcl*) 25 Mg Tab, 25 MG PO Q8, #90 TAB 09/14/18 Amlodipine Besylate* (Amlodipine Besylate*) 10 Mg Tablet, 10 MG PO DAILY, #30 TAB 09/14/18 Follow-up Plan appt primary and ENT 1 week Primary Care Provider Not On Staff Doctor Time spent on discharge: > 30 minutes Pending Labs Laboratory Tests Test 09/16/18 04:30 Sodium Level 142 mmol/L (135-144) Potassium Level 4.5 mmol/L (3.5-5.1) Chloride Level 110 mmol/L (97-110) Carbon Dioxide Level 25 mmol/L (21-31) Anion Gap 7 (5-13) Blood Urea Nitrogen 46 mg/dl (7-20) Creatinine 3.96 mg/dl (0.61-1.24) Est Glomerular Filtrat Rate mL/min 16 mL/min (>60) Glucose Level 130 mg/dl (70-220) Calcium Level 8.5 mg/dl (8.4-10.2) Phosphorus Level 4.6 mg/dl (2.5-4.9) Magnesium Level 2.3 mg/dl (1.7-2.5) JENNY DOMINGUEZ MD Sep 16, 2018 16:27
== END 2018-09-16 16:35 | disposition home or self-care (01) | DRG 155 ==
LOC: E/R 23:19 → TEL 09-14 01:56 → MS1 09-16 01:55
PROVIDERS: ADMIT Internal Medicine; ATTEND Internal Medicine
DX: S02.2XXA Fracture of nasal bones, initial encounter for closed fracture (principal); N18.5 Chronic kidney disease, stage 5; N17.9 Acute kidney failure, unspecified; E87.2 Acidosis; E87.0 Hyperosmolality and hypernatremia; W18.30XA Fall on same level, unspecified, initial encounter; F10.129 Alcohol abuse with intoxication, unspecified; D63.1 Anemia in chronic kidney disease; E83.9 Disorder of mineral metabolism, unspecified; Z86.73 Personal history of transient ischemic attack (TIA), and cerebral infarction without residual deficits; Z92.3 Personal history of irradiation; Z85.46 Personal history of malignant neoplasm of prostate; F41.1 Generalized anxiety disorder
CPT/HCPCS: 36592; 70450; 70486; 71045; 72125; 76775; 80048; 80053; 80307; 82436; 82803; 83036; 83605; 83690; 83735; 84100; 84133; 84300; 84443; 84484; 85025; 85610; 85730; 90715; 93005; J3411; J7030